=== PATIENT | male | born 1930 | race Caucasian/White ===

== ENCOUNTER 2019-10-03 16:37 | Observation (INO) | payer MEDICARE ==
[~2019-10-03] VITALS: Ht 170.2 cm; Wt 58.2 kg
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
--- NOTE | 2019-10-03 18:45 | NUR ---
PT ATE ALL OF DINNER, MALORIE WELL. AND DAUGTHER GONE NOW. PT DENIES NEEDS OR CONCERNS AT THIS TIME. CALL LIGHT WITHIN REACH.
--- NOTE | 2019-10-03 20:10 | NUR ---
RECEIVED REPORT FROM DAY SHIFT RN. PATIENT IS RESTING IN BED. NO NEEDS NOTED. CALL LIGHT IN REACH.
--- NOTE | 2019-10-03 21:00 | NUR ---
PATIENT ASSESMENT COMPLETED. PATIENTS VITALS TAKEN AND RECORDED. PATIENTS BP WNL. PATIENTS INTAKE AND OUPUT RECORDED. PATIENT HAS IV INFUSING PER ORDER. PATIENT DENIES ANY PAIN. PATIENT DENIES FEELING LIGHT HEADED OR DIZZY. PATIENT DENIES ANY NEEDS. CALL LIGHT IN REACH.
--- NOTE | 2019-10-03 23:57 | NUR ---
PATIENT IS RESTING IN BED WITH EYES CLOSED, RR 16. TELE #6, SR, HR 54. CALL LIGHT IN REACH.
--- NOTE | 2019-10-04 02:25 | NUR ---
PATIENTS VITALS TAKEN AND RECORDED. PATIENTS INTAKE AND OUTPUT RECORDED. PATIENT DENIES ANY CHEST PAIN. PATIENT DENIES BEING DIZZY OR LIGHT HEADED. PATIENT IS NO SL PER ORDER. PATIENT DENIES ANY FURTHER NEEDS. CALL LIGHT IN REACH.
--- NOTE | 2019-10-04 05:11 | NUR ---
PATIENT RESTED WELL THROUGHOUT THE SHIFT. PATIENT IS ON A REGULAR DIET, TOLERATING IT WELL, AND NO NAS[place]A NOTED. PATIENT HAS DENIED ANY PAIN. PATIENT IS A SBA. PATIENT IS SL AND IV FLUSHES WELL. PATIENT IS ON TELE #6, SB-SR, AND HR IN THE 50-60'S. PATIENT HAS DENIED BEING DIXXY OR LIGHT HEADED. PATIENT IS AAOX4 AND USES CALL LIGHT APPROPRIATELY.
--- NOTE | 2019-10-04 05:46 | NUR ---
PATIENT IS RESTING IN BED. PATIENTS VITALS TAKEN AND RECORDED. INTAKE AND OUPUT RECORDED. PATIENT DENIES ANY NEEDS. CALL LIGHT IN REACH. PATIENT REMAINS IN TELE #6, SINUS KASSY HR 50.
--- NOTE | 2019-10-04 07:30 | NUR ---
PATIENT RESTING IN BED. PATIENT'S BREAKFAST ORDERED. CALL LIGHT WITHIN REACH. NO OTHER NEEDS AT THIS TIME
--- NOTE | 2019-10-04 07:32 | NUR ---
REPORT RECIEVED FROM LINEN ROOM ATTENDANT RNYENNY.
--- NOTE | 2019-10-04 08:32 | NUR ---
MORNING ASSESSMENT DONE. PT DENIES NEEDS. RESTING IN BED WAITING FOR BREAKFAST. HOPING TO GO HOME TODAY.
--- NOTE | 2019-10-04 09:01 | NUR ---
VITALS RECORDED, DR. LONG NOTIFIED OF PATIENT PULSE OF 50, GAVE THE OKAY TO GIVE BP MEDICATIONS.
--- NOTE | 2019-10-04 09:57 | NUR ---
PATIENT RESTING IN BED. VITAL SIGNS AND I&O DONE. HIGH BLOOD PRESSURE. RN NOTIFIED. ICE WATER GIVEN. CALL LIGHT WITHIN REACH. NO OTHER NEEDS AT THIS TIME
--- NOTE | 2019-10-04 10:36 | NUR ---
PATIENT DONE WITH BREAKFAST, DENIES NEEDS. DISCUSSED THAT BP IS STILL IN THE 160'S AFTER MORNING MEDICATIONS. PATIENT DENIES SYMPTOMS.
[2019-10-04] MEDS ORDERED: AMLODIPINE BESYL5 MG PO (11:51)
[2019-10-04] MEDS ORDERED: LISINOPRIL20 MG PO (11:52)
--- NOTE | 2019-10-04 12:10 | NUR ---
PATIENT DISCUSSING DISCHARGE MEDICATIONS WITH PHARMACY. RIGHT ARE SALINE LOCK D/C'D WITH CATHETER INTACT.
--- NOTE | 2019-10-04 17:09 | NUR ---
Max lives in [place], [place] with his . His has cancer and is beginning chemo this week. His daughter lives in [place] and assists them. Max is retired. He does not use any DME. Has an electric bp cuff in his home. Pt plans on discharge to home today and will drive self. Dr. Zaman notified and ok for pt to drive self.
== END 2019-10-04 12:30 | disposition home or self-care (01) ==
LOC: MS 16:37
PROVIDERS: ADMIT Student in an Organized Health Care Education/Training Program
DX: I16.0 Hypertensive urgency (principal); Z79.899 Other long term (current) drug therapy; Z88.0 Allergy status to penicillin
CPT/HCPCS: 36415; 80048; 80061; 83036; 83735; 85025; G0378; G0379; J7121